=== PATIENT | male | born 1950 | race Caucasian/White ===

== ENCOUNTER → 2019-06-13 | Outpatient (CLI) | payer MEDICARE ==
[2019-06-13 15:10] VITALS: BP 164/85; PULSE 85; TEMP 98.2; BMI 51.5
--- NOTE | 2019-06-13 22:09 | P.HPBAR ---
Bariatric H&P - History & Physicial H&P Date: 06/13/19 History & Physicial: Visit/CC: initial clinic visit Patient initial contact: Initial weight: Initial weight in pounds: Height: 5 ft 7.5 in Initial BMI: Last weight: Current weight: 151.5 kg Current weight in pounds: 334.00 Current BMI: 51.5 Couch body weight (based on NIH guidelines): 68.492 kg Excess body weight loss: The patient is a 68 year-old M who presents for Bariatric Assessment.Patient presents today as a new patient bariatric evaluation. Patient is interested in sleeve gastrectomy. He has investigated sleeve gastrectomy, bypass, lap band and is not interested in potential long-term risks of gastric bypass. He has had different family members that has had a gastric bypass in the past so he feels very familiar with those procedures. Patient suffers from diabetes, sleep apnea, hypertension, hyperlipidemia, osteoarthritis, coronary artery disease. He has been as heavy as 370. He has been part of the [facility] wellness plan for the last year with only 11 pounds weight loss.Patient denies any history of DVT or dysphagia. No prior abdominal surgeries. Review of Systems The patient denies any acute changes in his vision or hearing, no dysphagia or odynophagia, no chest pain or shortness of breath, no dysuria or hematuria, no headache, no runny nose, no rectal bleeding or melena, no unexplained weight loss Past Medical History Past Medical History: Coronary Artery Disease (CAD), Diabetes Mellitus, Hypertension, Osteoarthritis (OA), Sleep Apnea/CPAP/BIPAP Additional Past Medical History / Comment(s): USES CPAP MACHINE. PERIPHERAL NEUROPATHY. ABN. STRESS TEST History of Any Multi-Drug Resistant Organisms: None Reported Past Surgical History: Hernia Repair, Joint Replacement Additional Past Surgical History / Comment(s): LT TKA 08/2015. COLONOSCOPY Past Anesthesia/Blood Transfusion Reactions: Postoperative Nausea & Vomiting (PONV) Past Psychological History: Depression, PTSD Smoking Status: Former smoker Past Alcohol Use History: None Reported Additional Past Alcohol Use History / Comment(s): QUIT 1971 Past Drug Use History: None Reported - Past Family History Mother Family Medical History: No Reported History Surgical - Exam Vital Signs Temp Pulse BP 98.2 F 85 164/85 06/13/19 15:07 06/13/19 15:07 06/13/19 15:07 Physical exam: General: Well-developed, well-nourished HEENT: Normocephalic, sclerae nonicteric Abdomen: Nontender, nondistended Extremities: No edema Neuro: Alert and oriented Bariatric Assessment & Plan (1) Morbid obesity Narrative/Plan: Surgical options and There are associated risks and benefits reviewed in detail. Patient remains interested in sleeve gastrectomy. We'll continue preoperative workup. We'll plan upper endoscopy. Status: Acute Bariatric Checklist Checklist: Plan: Checklist: EGD: 1. Hiatal hernia: 2. H. Pylori: HgbA1c: Vitamin D: Smoking: Former smoker Primary care physician referral: dr mike [facility] Psychiatry clearance: Cardiology clearance: Sleep study: Diet journal: VTE risk score: VTE risk level: Rehab needs at discharge:
== END ==
LOC: BARWHC3 14:06
PROVIDERS: ATTEND Surgery
DX: E66.01 Morbid (severe) obesity due to excess calories (principal); Z87.891 Personal history of nicotine dependence; Z68.43 Body mass index [BMI] 50.0-59.9, adult
CPT/HCPCS: 99211

== ENCOUNTER 2019-07-07 06:25 | Day surgery (SDC) | payer MEDICARE ==
[2019-07-05 14:31] VITALS: BMI 50.1
[~2019-07-07 06:25] MED LIST: LACTATED RINGERS 1,000 ML IV SCH
[2019-07-07 07:23] VITALS: TEMP 98.2
[2019-07-07 07:24] LABS: Glucose,Whole Blood 122 mg/dL (75-99)
[2019-07-07] MEDS ORDERED: LIDOCAINE 1% INJ 10MG/ML (20 ML MDV) ONE (07:43)
[2019-07-07] MEDS ORDERED: KETAMINE 10 MG/ML 20 ML VIAL ONE (07:43)
[2019-07-07] MEDS ORDERED: PROPOFOL 10 MG/ML 20 ML VIAL IV ONE (07:43)
--- NOTE | 2019-07-07 07:50 | P.GSHP ---
History of Present Illness H&P Date: 07/07/19 Chief Complaint: Morbid obesity 68-year-old male here today for upper endoscopy. Patient has mild reflux at times. No dysphagia. Patient is interested in sleeve gastrectomy. Past Medical History Past Medical History: Coronary Artery Disease (CAD), Diabetes Mellitus, Hyperlipidemia, Hypertension, Osteoarthritis (OA), Sleep Apnea/CPAP/BIPAP Additional Past Medical History / Comment(s): USES CPAP MACHINE. PERIPHERAL NEUROPATHY History of Any Multi-Drug Resistant Organisms: None Reported Past Surgical History: Hernia Repair, Joint Replacement Additional Past Surgical History / Comment(s): LT TKA 08/2015. COLONOSCOPY Past Anesthesia/Blood Transfusion Reactions: Postoperative Nausea & Vomiting (PONV) Smoking Status: Former smoker - Past Family History Mother Family Medical History: No Reported History Medications and Allergies Home Medications Medication Instructions Recorded Confirmed Type Aspirin 81 mg PO DAILY 07/30/15 07/07/19 History Cholecalciferol [Vitamin D3] 800 unit PO DAILY@1200 07/30/15 07/07/19 History Fish Oil/Dha/Epa [Fish Oil 1,200 1 each PO DAILY 07/30/15 07/07/19 History mg Fish Oil] Gabapentin [Neurontin] 300 mg PO HS PRN 07/30/15 07/07/19 History Hydrochlorothiazide 25 mg PO QAM 07/30/15 07/07/19 History Lisinopril 60 mg PO QAM 07/30/15 07/07/19 History Sertraline [Zoloft] 100 mg PO HS 07/30/15 07/07/19 History amLODIPine BESYLATE [Norvasc] 10 mg PO QAM 07/30/15 07/07/19 History metFORMIN HCL [Glucophage] 1,700 mg PO QAM 07/30/15 07/07/19 History ARIPiprazole [Abilify] 10 mg PO QAM 05/06/16 07/07/19 History Isosorbide Mononitrate ER [Imdur] 30 mg PO DAILY 06/15/16 07/07/19 History Atorvastatin Calcium [Lipitor] 40 mg PO HS #90 tab 06/17/16 07/07/19 Rx Metoprolol Tartrate [Lopressor] 25 mg PO BID #0 06/17/16 07/07/19 Rx Nitroglycerin Sl Tabs [Nitrostat] 0.4 mg SUBLINGUAL Q5M PRN #25 tab 06/17/16 07/07/19 Rx Allergies Allergy/AdvReac Type Severity Reaction Status Date / Time No Known Allergies Allergy Verified 07/05/19 14:23 Surgical - Exam Vital Signs Temp Pulse Resp BP Pulse Ox 98.2 F 69 18 136/67 95 07/07/19 07:16 07/07/19 07:16 07/07/19 07:16 07/07/19 07:16 07/07/19 07:16 Physical exam: General: Well-developed, well-nourished HEENT: Normocephalic, sclerae nonicteric Abdomen: Nontender, nondistended Extremities: No edema Neuro: Alert and oriented Results - Labs Abnormal Lab Results - Last 24 Hours (Table) 07/07/19 Range/Units 07:21 POC Glucose (mg/dL) 122 H (75-99) mg/dL Assessment and Plan (1) GERD (gastroesophageal reflux disease) Narrative/Plan: Will proceed with upper endoscopy at this time. Current Visit: Yes Status: Acute Code(s): K21.9 - GASTRO-ESOPHAGEAL REFLUX DISEASE WITHOUT ESOPHAGITIS SNOMED Code(s): 408480820
--- NOTE | 2019-07-07 07:57 | P.PCN ---
Date of Procedure: 07/07/19 Procedure(s) Performed: Preoperative Dx: GERD, presurgical Postoperative Dx: Minimal gastritis Procedure: EGD with Bx Anesthesia: Sedation Endoscopist: Dr. Perez Specimens: Antrum Endoscopic Procedure: The patient was on the endoscopy table in the left decubitus position. The Olympus gastroscope was inserted into the oropharynx and passed under direct visualization to the region of the third portion of the duodenum. From that point the scope was slowly withdrawn inspecting all surfaces carefully. There were no neoplastic inflammatory or polypoid lesions throughout the duodenum. The pylorus was widely patent. The stomach was carefully inspected. There was minimal gastritis present. A biopsy of the antrum took place to rule out H. pylori. Retroflexion revealed a normal hiatus. The esophagus was then carefully examined. There were no neoplastic inflammatory or polypoid lesions throughout the visualized esophagus. The patient was then taken to the recovery room in stable condition per anesthesia guidelines. Recommendations: Await biopsy results. Follow-up bariatric clinic to schedule sleeve gastrectomy
[2019-07-07 08:02] VITALS: RESP 16
[2019-07-07 08:06] LABS: Glucose,Whole Blood 131 mg/dL (75-99)
[2019-07-07 08:22] VITALS: BP 125/62; PULSE 74
== END 2019-07-07 08:41 | disposition home or self-care (01) ==
LOC: ORWHC2ENDO 06:25
PROVIDERS: ATTEND Surgery
DX: K29.50 Unspecified chronic gastritis without bleeding (principal); M19.90 Unspecified osteoarthritis, unspecified site; E11.40 Type 2 diabetes mellitus with diabetic neuropathy, unspecified; E66.01 Morbid (severe) obesity due to excess calories; E78.5 Hyperlipidemia, unspecified; I10 Essential (primary) hypertension; I25.10 Atherosclerotic heart disease of native coronary artery without angina pectoris; K21.9 Gastro-esophageal reflux disease without esophagitis; Z79.82 Long term (current) use of aspirin; Z87.891 Personal history of nicotine dependence; Z99.89 Dependence on other enabling machines and devices; Z96.652 Presence of left artificial knee joint; Z79.84 Long term (current) use of oral hypoglycemic drugs; Z79.899 Other long term (current) drug therapy; G47.33 Obstructive sleep apnea (adult) (pediatric)
CPT/HCPCS: 88305; 43239; J2001; J2704

== ENCOUNTER → 2019-07-10 | Outpatient (CLI) | payer MEDICARE ==
[2019-07-10 14:32] VITALS: BMI 51.6
== END ==
LOC: BARWHC3 08:21
PROVIDERS: ATTEND Surgery
DX: E66.01 Morbid (severe) obesity due to excess calories (principal); E11.65 Type 2 diabetes mellitus with hyperglycemia
CPT/HCPCS: 97804

== ENCOUNTER 2020-05-15 06:12 | Day surgery (SDC) | payer MEDICARE ==
[~2020-05-15 06:12] MED LIST changes: +ALPRAZolam 0.25 MG TAB PO PRN; +ALPRAZolam 0.5 MG TAB PO PRN; +ASPIRIN 325 MG TAB PO STA; +ATORVASTATIN 80 MG TAB PO STA; -LACTATED RINGERS 1,000 ML IV SCH; +NITROGLYCERIN SL TABS 0.4 MG TAB SUBLINGUAL PRN; +SODIUM CHLORIDE 0.9% 1,000 ML in EMPTY BAG 1 BAG IV ONE
[2020-05-15 07:15] LABS: Glucose,Whole Blood 121 mg/dL (75-99)
[2020-05-15 07:18] LABS: Basophils # (A) 0.1 k/uL (0-0.2); Basophils % (A) 0 %; Eosinophils # (A) 0.3 k/uL (0-0.7); Eosinophils % (A) 3 %; HCT 43.3 % (39.0-53.0); HGB 14.6 gm/dL (13.0-17.5); Lymphocytes # (A) 3.2 k/uL (1.0-4.8); Lymphocytes % (A) 28 %; MCH 30.5 pg (25.0-35.0); MCHC 33.8 g/dL (31.0-37.0); MCV 90.4 fL (80.0-100.0); Mean Platelet Volume 8.1; Monocytes # (A) 0.8 k/uL (0-1.0); Monocytes % (A) 7 %; Neutrophils # (A) 6.8 k/uL (1.3-7.7); Neutrophils % (A) 60 %; Platelet Count 239 k/uL (150-450); RBC 4.78 m/uL (4.30-5.90); RDW 12.6 % (11.5-15.5); WBC 11.3 k/uL (3.8-10.6)
[2020-05-15 07:49] LABS: African American GFR (CKD) >90 (>60 ml/min/1.73 sqM); Anion Gap 9 mmol/L; Blood Urea Nitrogen 18 mg/dL (9-20); Calcium 9.4 mg/dL (8.4-10.2); Carbon Dioxide 28 mmol/L (22-30); Chloride 103 mmol/L (98-107); Glucose 125 mg/dL (74-99); Non-African American GFR(CKD) >90 (>60 ml/min/1.73 sqM); Sodium 140 mmol/L (137-145)
[2020-05-15] MEDS ORDERED: METOPROLOL TARTRATE 25 MG TAB PO STA (08:00)
[2020-05-15] MEDS ORDERED: lisinopriL 20 MG TAB PO STA (08:01)
[2020-05-15] MEDS ORDERED: amLODIPine 10 MG TAB PO STA (08:01)
[2020-05-15] MEDS ORDERED: VERAPAMIL 2.5 MG/ML 2 ML AMP ONE (11:35)
[2020-05-15] MEDS ORDERED: LIDOCAINE 1% INJ 10MG/ML (20 ML MDV) ONE (11:35)
[2020-05-15] MEDS ORDERED: HEPARIN SODIUM 1,000 UN/ML (10ML VL) ONE ×2 (11:36→12:11)
[2020-05-15] MEDS ORDERED: fentaNYL (PF) 50 MCG/ML 2 ML AMP ONE (11:36)
[2020-05-15] MEDS ORDERED: VERAPAMIL SYRINGE (5 MG/10 ML) INTRAARTER ONE (11:53)
[2020-05-15] MEDS ORDERED: LIDOCAINE 1% INJ 10MG/ML (20 ML MDV) SQ ONE (11:53)
[2020-05-15] MEDS ORDERED: fentaNYL (PF) 50 MCG/ML 2 ML AMP IV ONE (11:53)
[2020-05-15] MEDS ORDERED: PRASUGREL 10 MG TAB ONE (12:05)
[2020-05-15] MEDS ORDERED: PRASUGREL 10 MG TAB PO ONE (12:07)
[2020-05-15] MEDS ORDERED: NITROGLYCERIN 1000MCG/10ML SYRINGE INTRACORON ONE (12:17)
[2020-05-15] MEDS ORDERED: IOPAMIDOL-370 125ML BTL INJ ONE (12:18)
[2020-05-15] MEDS ORDERED: RX INFO: IV CONTRAST WAS GIVEN 1 EACH MISC MISCELLANE PRN (12:48)
[2020-05-15] MEDS ORDERED: ZOLPIDEM 5 MG TAB PO PRN (12:48)
[2020-05-15] MEDS ORDERED: NITROGLYCERIN SL TABS 0.4 MG TAB SUBLINGUAL PRN (12:48)
[2020-05-15] MEDS ORDERED: ATROPINE SULFATE 0.1 MG/ML 10ML SYRINGE IV PRN (12:48)
[2020-05-15] MEDS ORDERED: MAG HYDROX/AL HYDROX/SIMETH 30 ML CUP PO PRN (12:48)
[2020-05-15] MEDS ORDERED: GABAPENTIN 300 MG CAP PO PRN (12:49)
[2020-05-15] MEDS ORDERED: SODIUM CHLORIDE 0.9% 1,000 ML IV SCH (14:00)
--- NOTE | 2020-05-15 14:26 | CC ---
CARDIAC CATHETERIZATION REPORT Mr. Song is a 69-year-old male with known history of hypertension, hyperlipidemia, diabetes mellitus, history of triple-vessel coronary artery disease, multiple stenting in 2016. At that time, he declined coronary bypass grafting. He has done reasonably well from the cardiac standpoint until the last couple of weeks when he started to complain of exertional chest discomfort, relieved with rest. In view of that, recommendation made regarding cardiac catheterization. The procedures, risks, and complications were discussed with the patient who is in full understanding and agreement. PROCEDURE: Patient was brought to the clinical laboratory scientist in the fasting semi-sedated state after receiving fentanyl and Benadryl and achieving moderate conscious sedated state. Using Xylocaine anesthesia and Seldinger technique, a 6-Trinidadian sheath was introduced in the right radial artery. Selective right and left coronary angiography performed using 5- Trinidadian 3.5 bend right and left Chris catheter, multiple views of the coronary artery including hemiaxial views were obtained, following that a 5-Trinidadian tight pigtail catheter introduced into the left ventricle and left ventricular end-diastolic pressure was calculated. Following that, catheters were removed, images were reviewed. FINDINGS: LEFT MAIN: This is a short size vessel, trifurcating into left circumflex, ramus intermedius and left anterior descending artery. Left main coronary artery has no evidence of high-grade stenosis. LEFT ANTERIOR DESCENDING ARTERY: This is a large-sized vessel reaching toward the apex. Tapers down in distal third. Gives rise to a moderately sized diagonal branch. The left anterior descending coronary artery proximal segment is stented, in the proximal segment of the stent there is a 95% stenosis, at the distal edge of the stent there is about a 40% to 50% stenosis. The rest of the vessel has no high-grade stenosis. LEFT CIRCUMFLEX: This is a nondominant vessel giving rise to 2 distal obtuse marginal branch. The left circumflex has a 30% to 40% plaque proximally. The rest of the vessel has no high-grade stenosis. RAMUS INTERMEDIUS: This is a moderately-sized vessel, reaching to the apical lateral wall. The proximal segment of the ramus intermedius has a 20% to 30% plaque. The stented segment has mild intimal restenosis of 10% to 20% The rest of the vessel has no high-grade stenosis. RIGHT CORONARY ARTERY: This is a large dominant vessel, bifurcating distally into PDA and posterolateral segment and branches. The right PDA stented segment is patent with no significant in-stent restenosis. LEFT VENTRICULOGRAM: Left ventriculogram was not performed. HEMODYNAMICS: There was no gradient across the aortic valve. The left ventricular end- diastolic pressure was 14-18 mmHg. CONCLUSION: 1. Critical stenosis in the proximal left anterior descending artery with moderate in- stent restenosis in the mid LAD. 2. Mild to moderate disease in the left circumflex, and the right coronary artery as well as ramus intermedius. RECOMMENDATION: In view of finding anatomy, I recommend proceeding with angioplasty and stenting. The procedures, risks, and complication were discussed with the patient, who is in full understanding and agreement. MMODL / IJN: [id number] / MTDD
[2020-05-15 14:37] VITALS: BMI 50.1
--- NOTE | 2020-05-15 14:55 | PTCA ---
PERCUTANEOUSTRANS CORORONARY ANGIOGRAPHY Mr. Song is a 69-year-old male with known history of hypertension, hyperlipidemia, diabetes mellitus, who presented with symptoms of new onset angina pectoris. He has a known history of coronary artery disease with multivessel stenting in 2016. He underwent cardiac catheterization, was found to have critical stenosis involving the proximal LAD. In view of that, recommendation made regarding angioplasty and stenting, the procedures, risks, and complications were discussed with the patient who is in full understanding and agreement. PROCEDURE: A 6-Hungarian FL 3.5 guiding catheter introduced into the system. After cannulating the left main, a 0.014 balanced medium weight J-wire was advanced across the lesion, positioned distally, then a 2.75 x 12 mm NC Trek balloon was advanced and one inflation at 12 atmospheres was done. Following that, the balloon was removed and a 3.25 x 15 mm Xience Claudia stent was deployed, post-dilated to 16 atmospheres. After the last inflation, after appropriate wait, the balloon and the guidewire were withdrawn back in the guiding catheter. Images were obtained and repeated. Those images reveal stable successful stenting. At that point, the guiding catheter, the balloon and the guidewire were removed, the sheath was removed, hemostasis was obtained and deployment of a TR band. There was no immediate complication. Patient was returned to his room in stable condition. Of note, [place] [address] units of intravenous heparin and oral loading dose of Effient. Throughout the procedure, his ACT was monitored. He also has received intra-arterial verapamil. He has no significant he had chest discomfort or EKG changes. RESULTS: Successful stenting of the proximal LAD with reduction of stenosis from 95% to 0%. RECOMMENDATION: Patient will be continued on aspirin, Effient, in addition to statin, the importance of dual antiplatelet treatment were discussed with the patient, who is in full understanding and agreement. Duration of procedure is 36 minutes. MMODL / IJN: [id number] /
[2020-05-15] MEDS: METOPROLOL TARTRATE 25 MG TAB PO SCH (20:25)
[2020-05-15] MEDS: lisinopriL 20 MG TAB PO SCH (20:25)
[2020-05-15] MEDS ORDERED: SERTRALINE 100 MG TAB PO SCH (21:00)
[2020-05-15] MEDS ORDERED: ATORVASTATIN 80 MG TAB PO SCH (21:00)
[2020-05-16 06:13] LABS: African American GFR (CKD) >90 (>60 ml/min/1.73 sqM); Anion Gap 11 mmol/L; Blood Urea Nitrogen 16 mg/dL (9-20); Calcium 9.2 mg/dL (8.4-10.2); Carbon Dioxide 25 mmol/L (22-30); Chloride 104 mmol/L (98-107); Glucose 115 mg/dL (74-99); Non-African American GFR(CKD) >90 (>60 ml/min/1.73 sqM); Potassium 4.3 mmol/L (3.5-5.1); Sodium 140 mmol/L (137-145)
[2020-05-16 07:26] VITALS: BP 152/78; PULSE 57; RESP 18; TEMP 98.1
[2020-05-16] MEDS: METOPROLOL TARTRATE 25 MG TAB PO SCH (07:45)
[2020-05-16] MEDS: lisinopriL 20 MG TAB PO SCH (07:45)
[2020-05-16] MEDS ORDERED: ARIPiprazole 10 MG TAB PO SCH (09:00)
[2020-05-16] MEDS ORDERED: hydroCHLOROthiazide 25 MG TAB PO SCH (09:00)
[2020-05-16] MEDS ORDERED: ASPIRIN 81 MG PO SCH (09:00)
[2020-05-16] MEDS ORDERED: amLODIPine 10 MG TAB PO SCH (09:00)
--- NOTE | 2020-05-16 09:13 | PN ---
PROGRESS NOTE Mr. Song is a 69-year-old male with known history of coronary artery disease, history of diabetes, multivessel coronary angioplasty and stenting in 2016 who presented with new onset angina pectoris, underwent cardiac catheterization was found to have critical stenosis in the proximal LAD, underwent successful stenting of that vessel. He is doing well this morning, ambulating without difficulty. He has no chest pain. He feels that his breathing is better. He denies any dizziness or palpitation. He continues to be in sinus mechanism. He continues to be on amlodipine 10 mg daily, Abilify 10 mg daily, aspirin 81 mg daily, Lipitor 80 mg daily, gabapentin, hydrochlorothiazide 25 mg daily, lisinopril 20 mg twice a day, metoprolol tartrate 25 mg twice a day. PHYSICAL EXAMINATION: Blood pressure running in the 130s with a heart rate in the 50s. LUNGS: Clear. HEART: Regular rate and rhythm, S1, S2. No S3. No rub. ABDOMEN: Soft, nontender. EXTREMITIES: No edema, right radial pulse intact. LAB DATA: Revealed BUN and creatinine 16 and 0.81, potassium 4.3. EKG revealed no acute changes. IMPRESSION: 1. Status post stenting of the LAD. 2. Status post multivessel stenting done in 2016. 3. Hypertension. 4. Hyperlipidemia. 5. Diabetes mellitus. RECOMMENDATION: Patient will be discharged home today and followed as an outpatient. The importance of dual antiplatelet treatment were discussed with the patient. MMJUAN / NILS: [id number] /
[2020-05-16] MEDS ORDERED: CHOLECALCIFEROL 400 UNIT TAB PO SCH (12:00)
[2020-05-16] MEDS ORDERED: PRASUGREL 10 MG TAB PO SCH (12:00)
== END 2020-05-16 08:45 | disposition home or self-care (01) ==
LOC: CATHCVL 06:12 → 3NCARDOBS 12:26 → CATHCVL 05-16 08:45
PROVIDERS: ATTEND Internal Medicine Interventional Cardiology
DX: I25.110 Atherosclerotic heart disease of native coronary artery with unstable angina pectoris (principal); I10 Essential (primary) hypertension; T82.855A Stenosis of coronary artery stent, initial encounter; E78.2 Mixed hyperlipidemia; E11.9 Type 2 diabetes mellitus without complications; Z79.899 Other long term (current) drug therapy; E78.00 Pure hypercholesterolemia, unspecified; Z96.659 Presence of unspecified artificial knee joint; Z98.890 Other specified postprocedural states; M19.90 Unspecified osteoarthritis, unspecified site; G47.33 Obstructive sleep apnea (adult) (pediatric); Z87.891 Personal history of nicotine dependence; Z79.84 Long term (current) use of oral hypoglycemic drugs; Z79.02 Long term (current) use of antithrombotics/antiplatelets; Z79.82 Long term (current) use of aspirin
CPT/HCPCS: 93458; 80048 ×2; 85025; C9600; C1769 ×2; C1887; C1725; C1874; C1894; J2001; J3010; J1644; Q9967

== ENCOUNTER → 2023-08-10 | Outpatient (CLI) | payer OTHER ==
[2023-08-10 07:58] LABS: African American GFR (CKD) >90 (>60 ml/min/1.73 sqM); Blood Urea Nitrogen 13 mg/dL (9-20); Non-African American GFR(CKD) >90 (>60 ml/min/1.73 sqM)
--- NOTE | 2023-08-10 08:26 | CT ---
EXAMINATION TYPE: CT chest w con DATE OF EXAM: 08/10/2023 COMPARISON: None HISTORY: Abnormal lung scan CT DLP: 937.60 mGycm Automated exposure control for dose reduction was used. CONTRAST: CT scan of the chest is performed with IV Contrast, patient injected with 100 ml mL of Isovue 300. FINDINGS: LUNGS: The lungs are grossly clear, there is no concerning parenchymal mass or nodule identified. T here is no pleural effusion or pneumothorax seen. The tracheobronchial tree is patent. Emphysematous bleb right middle lobe. MEDIASTINUM: There are no greater than 1 cm hilar or mediastinal lymph nodes. No pericardial effusi on is seen. Thoracic aorta is of normal caliber. The heart is not enlarged. UPPER ABDOMEN: No significant abnormality appreciated. OTHER: No additional significant abnormality is seen. IMPRESSION: No significant abnormality appreciated.
== END | disposition home or self-care (01) ==
LOC: RADCTMAIN 07:20
PROVIDERS: ATTEND Internal Medicine
DX: R91.8 Other nonspecific abnormal finding of lung field (principal)
CPT/HCPCS: 82565; 84520; 71260; 36415; Q9967